=== PATIENT | female | born 1995 | race Caucasian/White ===

== ENCOUNTER 2017-10-04 17:17 | Emergency (ER) | payer SELFPAY, OTHER ==
[2017-10-04] MEDS: HYDROCODONE/APAP (5/325) TAB PO (19:53)
[2017-10-04] MEDS: ONDANSETRON (ODT) 4 MG TAB ODT (19:53)
[2017-10-04] MEDS: KETOROLAC 30 MG INJ IM (19:54)
== END 2017-10-04 20:46 | disposition home or self-care (01) ==
LOC: FTE 17:17
DX: R51 Headache (principal)
CPT/HCPCS: 70450; 81025; 96372; 99285-25

== ENCOUNTER 2017-12-28 12:09 | Emergency (ER) | payer BC, OTHER ==
[2017-12-28] MEDS: IPRATROPIUM (NEB) 0.5 MG/2.5 ML AMP HHN (14:24)
[2017-12-28] MEDS: ALBUTEROL 0.083% (NEB) 2.5 MG/3 ML AMP HHN (14:24)
[2017-12-28] MEDS: DEXAMETHASONE 10 MG/ML 1 ML INJ PO (15:11)
== END 2017-12-28 16:00 | disposition home or self-care (01) ==
LOC: FTE 12:09
DX: J45.901 Unspecified asthma with (acute) exacerbation (principal)
CPT/HCPCS: 94640; 94644; 99284-25